=== PATIENT | male | born 1995 | race Caucasian/White ===

== ENCOUNTER 2017-05-01 21:01 | Emergency (ER) | payer SELFPAY ==
[~2017-05-01] VITALS: Ht 182.9 cm; Wt 81.8 kg
[2017-05-01 21:03] VITALS: TEMP 98.1
[2017-05-01] MEDS ORDERED: ZOFRAN 4MG T4 MG/TAB PO (23:22)
[2017-05-01 23:32] VITALS: BP 102/67; PULSE 84
== END 2017-05-01 23:34 | disposition home or self-care (01) ==
LOC: COL.ER 21:01
DX: K52.9 Noninfective gastroenteritis and colitis, unspecified (principal); B34.9 Viral infection, unspecified
CPT/HCPCS: J1885; J2405; J7030

== ENCOUNTER 2019-01-10 18:40 | Emergency (ER) | payer BC ==
[~2019-01-10] VITALS: Ht 182.9 cm; Wt 95.5 kg
[~2019-01-10 18:40] MED LIST: ZOFRAN 4MG T4 MG/TAB PO
[2019-01-10 18:52] VITALS: BP 123/59; TEMP 98.4
[2019-01-10 21:05] LABS: STREP SCREEN NEGATIVE
[2019-01-10 21:51] VITALS: PULSE 82
== END 2019-01-10 21:51 | disposition home or self-care (01) ==
LOC: COL.ER 18:40
PROVIDERS: Nurse Practitioner
DX: J06.9 Acute upper respiratory infection, unspecified (principal); Z88.0 Allergy status to penicillin

== ENCOUNTER 2019-01-18 10:18 | Emergency (ER) | payer BC ==
[~2019-01-18] VITALS: Ht 182.9 cm; Wt 81.8 kg
[2019-01-18 10:36] VITALS: BP 125/72; TEMP 98.2
[2019-01-18 11:38] LABS: STREP SCREEN NEGATIVE
[2019-01-18] MEDS ORDERED: CLEOCIN HCL300 MG PO (12:06)
[2019-01-18 12:30] VITALS: PULSE 87
== END 2019-01-18 12:30 | disposition home or self-care (01) ==
LOC: COL.ER 10:18
PROVIDERS: Physician Assistant
DX: J03.90 Acute tonsillitis, unspecified (principal)